=== PATIENT | male | born 1965 | race Caucasian/White ===

== ENCOUNTER 2016-12-16 14:26 | Emergency (ER) | payer MEDICARE, OTHER ==
--- NOTE | 2016-12-16 16:54 | ED ---
Wound/Laceration HPI - General Chief Complaint: Wound/Laceration Stated Complaint: thumb lac Time Seen by Provider: 12/16/16 16:06 Source: patient Mode of arrival: ambulatory Limitations: no limitations - History of Present Illness Initial Comments: Patient is a 51-year-old right-handed white male presenting to the emergency department with complaints of laceration to left thumb. Onset of injury approximately one hour prior to arrival. Patient states he cut himself on the lid of a metal can. Patient states his tetanus shot less than 5 years ago. Onset/Timin -: hour(s) Extremity Location: Left: Hand (Distal thumb) Place: home Patient Tetanus UTD: Yes Context: accidental Treatments Prior to Arrival: bandage - Related Data Home Medications Medication Instructions Recorded Confirmed Mometasone/Formoterol [Dulera 100 2 puff INHALATION RT-BID 10/31/15 01/20/16 Mcg/5 Mcg Inhaler] Albuterol Sulfate [Proair Hfa] 2 puff INHALATION RT-Q6H PRN 01/20/16 01/20/16 Previous Rx's Medication Instructions Recorded Clindamycin [Cleocin] 450 mg PO Q8HR #90 capsule 01/20/16 Ibuprofen [Motrin] 600 mg PO Q6HR PRN #20 tab 01/20/16 Cephalexin [Keflex] 500 mg PO Q6HR #28 cap 12/16/16 Allergies Allergy/AdvReac Type Severity Reaction Status Date / Time No Known Allergies Allergy Verified 12/16/16 14:46 Review of Systems ROS Statement: Those systems with pertinent positive or pertinent negative responses have been documented in the HPI. ROS Other: All systems not noted in ROS Statement are negative. Past Medical History Past Medical History: Asthma History of Any Multi-Drug Resistant Organisms: None Reported Past Surgical History: Orthopedic Surgery Additional Past Surgical History / Comment(s): left knee sx Past Psychological History: No Psychological Hx Reported Smoking Status: Never smoker Past Alcohol Use History: Rare Past Drug Use History: None Reported General Exam Limitations: no limitations General appearance: alert, in no apparent distress Head exam: Present: atraumatic, normocephalic, normal inspection Eye exam: Present: normal appearance ENT exam: Present: normal exam, mucous membranes moist Neck exam: Present: normal inspection Respiratory exam: Present: normal lung sounds bilaterally. Absent: respiratory distress, wheezes, rales, rhonchi, stridor Cardiovascular Exam: Present: regular rate, normal rhythm, normal heart sounds. Absent: systolic murmur, diastolic murmur, rubs, gallop, clicks GI/Abdominal exam: Present: soft, normal bowel sounds Left Hand Wrist exam: Present: normal inspection, full ROM, laceration (2 cm irregular laceration to distal left thumb). Absent: tenderness, swelling Neuro motor exam: Present: wrist extension intact, thumb opposition intact, thumb IP flexion intact, thumb adduction intact, fingers 2-5 abduction intact Neurosensory exam: Present: 2-point discrimination, radial nerve intact, ulnar nerve intact, median nerve intact Vascular: Present: normal capillary refill, radial pulse, brachial pulse, ulnar pulse. Absent: vascular compromise Neurological exam: Present: alert, oriented X3, other (No focal deficits noted) . Absent: motor sensory deficit Psychiatric exam: Present: normal affect, normal mood Skin exam: Present: warm, dry, normal color Course Vital Signs 12/16/16 14:44 Temperature 97.5 F L Pulse Rate 57 L Respiratory 18 Rate Blood Pressure 110/70 O2 Sat by Pulse 99 Oximetry Procedures - Laceration Laceration #1 Consent Obtained: verbal consent Indication: laceration Site: hand (Left distal thumb radial aspect) Size (cm): 2 Description: irregular, clean Depth: simple, single layer Anesthetic Used: lidocaine 1% Anesthesia Technique: local infiltration Amount (mls): 1 Pre-repair: wound explored, irrigated extensively, deep structures intact Type of Sutures: nylon Size of Sutures: 5-0 Number of Sutures: 4 Technique: simple, interrupted Patient Tolerated Procedure: well, no complications Medical Decision Making - Medical Decision Making Left thumb laceration. Patient tolerated laceration repair well. Wound care instructions and return parameters reviewed. Patient agreed to plan of care. Disposition Clinical Impression: Laceration of left thumb Disposition: HOME SELF-CARE Condition: Good Instructions: Care For Your Stitches (ED), Finger Laceration (ED) Additional Instructions: Postop wound care: Keep wound dry and clean for 24 hours; if dressing accidentally becomes wet, change dressing immediately. Gently clean the edges of the wound daily with a cotton swab saturated with peroxide to remove crust. Return immediately if signs of infection occur such as redness or red streaks progressing up and extremity, increasing pain, swelling, or fevers. Finish oral antibiotics as prescribed. Please return for suture removal in 7 days or sooner if complications. Please return to the emergency department if symptoms do not improve or get worse. Prescriptions: Cephalexin [Keflex] 500 mg PO Q6HR #28 cap Referrals: Jovani Foster MD [Primary Care Provider] - 1-2 days Time of Disposition: 16:54
[2016-12-16 17:15] VITALS: BP 120/68; PULSE 78; RESP 16; TEMP 98
== END 2016-12-16 17:00 | disposition home or self-care (01) ==
LOC: EC 14:26
DX: S61.012A Laceration without foreign body of left thumb without damage to nail, initial encounter (principal); J45.909 Unspecified asthma, uncomplicated; Z79.51 Long term (current) use of inhaled steroids; W26.8XXA Contact with other sharp object(s), not elsewhere classified, initial encounter
CPT/HCPCS: 12001; 99282

== ENCOUNTER 2017-12-31 12:10 | Emergency (ER) | payer MEDICARE, OTHER ==
[2017-12-31 12:22] VITALS: BP 129/77; PULSE 85; RESP 18; TEMP 98.6
--- NOTE | 2017-12-31 12:38 | ED ---
Upper Extremity HPI - General Chief Complaint: Extremity Injury, Upper Stated Complaint: lt arm injury Time Seen by Provider: 12/31/17 12:24 Source: patient, RN notes reviewed Mode of arrival: ambulatory Limitations: no limitations - History of Present Illness Initial Comments: 52-year-old male presents emergency Department with chief complaint of left elbow injury. Patient states that he tripped at work and fell into his work line at work. Patient states that it is all night AND STATES THAT HER BODY FELL DIRECTLY INTO IT WITH HIS ELBOW AND ARM TUCKED INTO THE BODY. Patient states his arms outstretched. Patient denies any head injury no loss conscious. Patient states that he went to [facility] and sent here for further workup. Patient has had no x-rays. - Related Data Home Medications Medication Instructions Recorded Confirmed Albuterol Sulfate [Proair Hfa] 2 puff INHALATION RT-Q6H PRN 01/20/16 12/31/17 Previous Rx's Medication Instructions Recorded Ibuprofen [Motrin] 600 mg PO Q8HR PRN #30 tab 12/31/17 Allergies Allergy/AdvReac Type Severity Reaction Status Date / Time No Known Allergies Allergy Verified 12/31/17 13:18 Review of Systems ROS Statement: Those systems with pertinent positive or pertinent negative responses have been documented in the HPI. ROS Other: All systems not noted in ROS Statement are negative. Past Medical History Past Medical History: Asthma History of Any Multi-Drug Resistant Organisms: None Reported Past Surgical History: Orthopedic Surgery Additional Past Surgical History / Comment(s): left knee sx Past Psychological History: No Psychological Hx Reported Smoking Status: Never smoker Past Alcohol Use History: Rare Past Drug Use History: None Reported General Exam Limitations: no limitations General appearance: alert, in no apparent distress Head exam: Present: atraumatic, normocephalic, normal inspection Neck exam: Present: normal inspection. Absent: tenderness, meningismus, lymphadenopathy Respiratory exam: Present: normal lung sounds bilaterally. Absent: respiratory distress, wheezes, rales, rhonchi, stridor Cardiovascular Exam: Present: regular rate, normal rhythm, normal heart sounds. Absent: systolic murmur, diastolic murmur, rubs, gallop, clicks GI/Abdominal exam: Present: soft, normal bowel sounds. Absent: distended, tenderness, guarding, rebound, rigid Extremities exam: Present: other (Left elbow there is moderate times with palpation, moderate swelling small abrasion. Patient has limited range of motion secondary pain pain with full extension, pronation supination are is neurovascularly intact there is no tenderness of the proximal humeral region and there is no distal forearm tenderness) Skin exam: Present: warm, dry, intact, normal color. Absent: rash Course Vital Signs 12/31/17 12:20 Temperature 98.6 F Pulse Rate 85 Respiratory 18 Rate Blood Pressure 129/77 O2 Sat by Pulse 96 Oximetry Disposition Clinical Impression: Contusion of left elbow Disposition: HOME SELF-CARE Condition: Stable Instructions: Contusion in Adults (ED) Additional Instructions: Follow-up with orthopedics as directed.Please return to the Emergency Department if symptoms worsen or any other concerns. Prescriptions: Ibuprofen [Motrin] 600 mg PO Q8HR PRN #30 tab PRN Reason: Pain Is patient prescribed a controlled substance at d/c from ED?: No Referrals: Neto Foster MD [Primary Care Provider] - 1-2 days Aris Lacey MD [STAFF PHYSICIAN] - 1-2 days Time of Disposition: 13:28
--- NOTE | 2017-12-31 12:55 | XR ---
EXAMINATION TYPE: XR elbow complete LT DATE OF EXAM: 12/31/2017 CLINICAL HISTORY: Fall injury with pain. TECHNIQUE: Frontal, lateral and oblique images of the left elbow are obtained. COMPARISON: None FINDINGS: There is no acute fracture/dislocation evident in the left elbow. No abnormal fat pad sig ns are seen. Some spurring and ossifications medial epicondyle extending distally is present. Additio nal well-corticated ossific fragments over lateral epicondyles also are noted. Findings could be prod uct of old trauma and/or degenerative change. The overlying soft tissue shows mild subcutaneous edema along radial aspect of distal humerus. IMPRESSION: There is no acute fracture or dislocation in the left elbow.
== END 2017-12-31 13:43 | disposition home or self-care (01) ==
LOC: EC 12:10
DX: S50.02XA Contusion of left elbow, initial encounter (principal); Z98.890 Other specified postprocedural states; W01.0XXA Fall on same level from slipping, tripping and stumbling without subsequent striking against object, initial encounter; Y99.0 Civilian activity done for income or pay
CPT/HCPCS: 99283

== ENCOUNTER → 2018-04-30 | Outpatient (CLI) | payer MEDICARE ==
--- NOTE | 2018-04-30 14:31 | US ---
EXAMINATION TYPE: US abdomen complete DATE OF EXAM: 04/30/2018 COMPARISON: CT 05/14/2015 CLINICAL HISTORY: R74.8 ABN LEVELS OF OTHER SERUM ENZYMES. EXAM MEASUREMENTS: Liver Length: 14.6 cm Gallbladder Wall: 0.1 cm CBD: 0.4 cm Spleen: 12.9 cm Right Kidney: 11.2 x 4.0 x 4.9 cm Left Kidney: 11.8 x 4.9 x 4.3 cm Pancreas: Obscured by bowel gas Liver: wnl Gallbladder: wnl Evidence for sonographic Lacey's sign: No CBD: wnl as visualized, distal portion obscured by bowel gas Spleen: wnl Right Kidney: No hydronephrosis or masses seen Left Kidney: No hydronephrosis or masses seen Upper IVC: wnl Abd Aorta: wnl IMPRESSION: 1. Normal abdomen ultrasound
== END | disposition home or self-care (01) ==
LOC: RADUSWWP 08:18
PROVIDERS: ATTEND Family Medicine
DX: R74.8 Abnormal levels of other serum enzymes (principal)
CPT/HCPCS: 76700

== ENCOUNTER 2018-09-24 08:46 | Emergency (ER) | payer MEDICARE, OTHER ==
[2018-09-24 08:56] VITALS: BP 124/83; PULSE 65; RESP 18; TEMP 97.9
--- NOTE | 2018-09-24 09:28 | ED ---
URI HPI - General Chief Complaint: Upper Respiratory Infection Stated Complaint: SORE THROAT Time Seen by Provider: 09/24/18 09:13 Source: patient, RN notes reviewed Mode of arrival: ambulatory Limitations: no limitations - History of Present Illness Initial Comments: This is a 52-year-old male who states she's had a sore throat with a green nasal discharge and a productive cough with some green phlegm for the pelvic the past week he denies any ear pain denies any overt fevers chills or sweats does have sinus drainage as stated. No chest pain. No other symptoms reported - Related Data Home Medications Medication Instructions Recorded Confirmed Albuterol Sulfate [Proair Hfa] 2 puff INHALATION RT-Q6H PRN 01/20/16 12/31/17 Previous Rx's Medication Instructions Recorded Ibuprofen [Motrin] 600 mg PO Q8HR PRN #30 tab 12/31/17 Amoxicillin/Potassium Clav 1 tab PO Q12HR #20 tab 09/24/18 [Augmentin 875-125 Tablet] guaiFENesin [Mucinex] 600 mg PO Q12HR #20 tablet.er 09/24/18 Allergies Allergy/AdvReac Type Severity Reaction Status Date / Time No Known Allergies Allergy Verified 09/24/18 08:55 Review of Systems ROS Statement: Those systems with pertinent positive or pertinent negative responses have been documented in the HPI. ROS Other: All systems not noted in ROS Statement are negative. Past Medical History Past Medical History: Asthma History of Any Multi-Drug Resistant Organisms: None Reported Past Surgical History: Orthopedic Surgery Additional Past Surgical History / Comment(s): left knee sx Past Psychological History: No Psychological Hx Reported Smoking Status: Never smoker Past Alcohol Use History: Occasional Past Drug Use History: None Reported General Exam - General Exam Comments Initial Comments: This is a well-developed well-nourished awake alert oriented 3 male Limitations: no limitations General appearance: alert, in no apparent distress Head exam: Present: atraumatic, normocephalic, normal inspection Eye exam: Present: normal appearance, PERRL, EOMI. Absent: scleral icterus, conjunctival injection, periorbital swelling ENT exam: Present: other (He does demonstrate posterior pharyngeal hyperemia no definite exudates. TMs are dull. There is boggy nasal mucosa with some greenish drainage noted.) Neck exam: Present: normal inspection, tenderness (Tender anterior cervical lymphadenopathy), full ROM, lymphadenopathy, other (No stridor JVD or bruits). Absent: meningismus Respiratory exam: Present: normal lung sounds bilaterally. Absent: respiratory distress, wheezes, rales, rhonchi, stridor Cardiovascular Exam: Present: regular rate, normal rhythm, normal heart sounds. Absent: systolic murmur, diastolic murmur, rubs, gallop, clicks GI/Abdominal exam: Present: soft, normal bowel sounds. Absent: distended, tenderness, guarding, rebound, rigid Extremities exam: Present: normal inspection, full ROM, normal capillary refill. Absent: tenderness, pedal edema, joint swelling, calf tenderness Back exam: Present: normal inspection Neurological exam: Present: alert, oriented X3, CN II-XII intact Psychiatric exam: Present: normal affect, normal mood Skin exam: Present: warm, dry, intact, normal color. Absent: rash Course Vital Signs 09/24/18 08:54 Temperature 97.9 F Pulse Rate 65 Respiratory 18 Rate Blood Pressure 124/83 O2 Sat by Pulse 98 Oximetry Medical Decision Making - Medical Decision Making The presentation is consistent with nasal pharyngitis patient be discharged on appropriate medication Disposition Clinical Impression: Nasopharyngitis acute Disposition: HOME SELF-CARE Condition: Good Instructions (If sedation given, give patient instructions): Pharyngitis (ED) Prescriptions: Amoxicillin/Potassium Clav [Augmentin 875-125 Tablet] 1 tab PO Q12HR #20 tab guaiFENesin [Mucinex] 600 mg PO Q12HR #20 tablet.er Is patient prescribed a controlled substance at d/c from ED?: No Referrals: Neto Foster MD [Primary Care Provider] - 1-2 days
== END 2018-09-24 09:42 | disposition home or self-care (01) ==
LOC: EC 08:46
DX: J00 Acute nasopharyngitis [common cold] (principal); J45.909 Unspecified asthma, uncomplicated
CPT/HCPCS: 99283

== ENCOUNTER 2019-07-09 09:39 | Emergency (ER) | payer MEDICARE, OTHER ==
[2019-07-09 09:43] VITALS: RESP 16; TEMP 98.2
[2019-07-09] MEDS ORDERED: ACET/COD 300 MG/30 MG STARTER PACK 6 TAB BTL PO STA (10:50)
[2019-07-09] MEDS ORDERED: AMOXIC-POT CLAV 875MG STARTER 2 EACH TABLET PO STA (10:50)
--- NOTE | 2019-07-09 10:58 | ED ---
ENT HPI - General Stated complaint: DENTAL ABSCESS, FACIAL SWELLING Time Seen by Provider: 07/09/19 10:26 Source: patient, RN notes reviewed, old records reviewed Mode of arrival: ambulatory Limitations: no limitations - History of Present Illness Initial comments: Patient is a 53 year old male presents today for evalutaiotn for facial sweling boer the right upper cheek, up towards the eye. Patient reports that he has infected right eye tooth. He plans to follow up with dentist. Patient denies fevers, chills. Patient complains of pain in the right upper eye tooth, and sensitive to cold and heat. Patient denies any other symptoms. - Related Data Previous Rx's Medication Instructions Recorded Amoxic-Pot Clav 875-125Mg 1 tab PO BID #20 tab 07/09/19 [Augmentin 875-125] Ibuprofen [Motrin] 600 mg PO Q8HR PRN #30 tab 07/09/19 Allergies Allergy/AdvReac Type Severity Reaction Status Date / Time No Known Allergies Allergy Verified 07/09/19 11:12 Review of Systems ROS Statement: Those systems with pertinent positive or pertinent negative responses have been documented in the HPI. ROS Other: All systems not noted in ROS Statement are negative. Past Medical History Past Medical History: Asthma History of Any Multi-Drug Resistant Organisms: None Reported Past Surgical History: Orthopedic Surgery Additional Past Surgical History / Comment(s): left knee sx Past Psychological History: No Psychological Hx Reported Smoking Status: Never smoker Past Alcohol Use History: Occasional Past Drug Use History: None Reported General Exam - General Exam Comments Initial Comments: 53 year old male, no distress. Limitations: no limitations General appearance: alert, in no apparent distress Head exam: Present: atraumatic, normocephalic, normal inspection Eye exam: Present: normal appearance, PERRL, EOMI. Absent: scleral icterus, conjunctival injection, periorbital swelling ENT exam: Present: normal exam, mucous membranes moist, other (Patient has swelling over right upper lip into maxilla, concern for infection and abscess releated to right upper eye tooth. ) Neck exam: Present: normal inspection. Absent: tenderness, meningismus, lymphadenopathy Respiratory exam: Present: normal lung sounds bilaterally. Absent: respiratory distress, wheezes, rales, rhonchi, stridor Cardiovascular Exam: Present: regular rate, normal rhythm, normal heart sounds. Absent: systolic murmur, diastolic murmur, rubs, gallop, clicks GI/Abdominal exam: Present: soft, normal bowel sounds. Absent: distended, tenderness, guarding, rebound, rigid Neurological exam: Present: alert, oriented X3, CN II-XII intact Psychiatric exam: Present: normal affect, normal mood Skin exam: Present: warm, dry, intact, normal color. Absent: rash Course Vital Signs 07/09/19 07/09/19 09:40 11:16 Temperature 98.2 F Pulse Rate 75 76 Respiratory 16 16 Rate Blood Pressure 89/54 141/72 O2 Sat by Pulse 98 99 Oximetry Medical Decision Making - Medical Decision Making 53 year old male with facial swelling and dental infection. Discussed placing patient on augmentin and advised that patient follow up with dentist. Discussed return parameters if symptoms don't diminish in 2 days of antibiotics. Patient is agreeable to treatment plan. Disposition Clinical Impression: Dental abscess Disposition: HOME SELF-CARE Instructions (If sedation given, give patient instructions): Dental Abscess (ED) Additional Instructions: Please use medication as discussed. Please follow up with family doctor if symptoms have not improved over the next two days. Please return to the emergency room if your symptoms increase or worsen or for any other concerns. [facility] [place] [id number] [employer] [place] [id number] [phone] (existing clients only) For new clients: [phone] 1st consult: $50 (includes Xrays) Usually 30% less then private dentist for visits after. [employer] Have to pay $50 for Xrays anmd rest is covered. [phone] Prescriptions: Amoxic-Pot Clav 875-125Mg [Augmentin 875-125] 1 tab PO BID #20 tab Ibuprofen [Motrin] 600 mg PO Q8HR PRN #30 tab PRN Reason: Pain Is patient prescribed a controlled substance at d/c from ED?: No Referrals: Jovani Foster MD [STAFF PHYSICIAN] - 1-2 days Time of Disposition: 10:57
[2019-07-09 11:18] VITALS: BP 141/72; PULSE 76
== END 2019-07-09 11:16 | disposition home or self-care (01) ==
LOC: EC 09:39
DX: K04.7 Periapical abscess without sinus (principal)
CPT/HCPCS: 99283

== ENCOUNTER → 2020-04-01 | Outpatient (CLI) | payer OTHER ==
--- NOTE | 2020-04-01 09:07 | US ---
EXAMINATION TYPE: US abdomen complete DATE OF EXAM: 04/01/2020 COMPARISON: CT May 12, 2015 CLINICAL HISTORY: R74.8 Elevated liver enzymes. elevated liver enzymes EXAM MEASUREMENTS: Liver Length: 14.3 cm Gallbladder Wall: 0.2 cm CBD: 0.4 cm Spleen: 13.2 cm Right Kidney: 10.3 x 5.6 x 5.1 cm Left Kidney: 12.1 x 5.1 x 5.1 cm Pancreas: Tail obscured by overlying bowel gas Liver: appears wnl Gallbladder: no evidence of stones Evidence for sonographic Lacey's sign: no CBD: appears wnl Spleen: wnl Right Kidney: no evidence of hydronephrosis or mass Left Kidney: no evidence of hydronephrosis or mass Upper IVC: wnl Abd Aorta: wnl The visualized liver is slightly heterogeneous. The intrahepatic portion of the IVC and visualized a bdominal aorta are within normal limits. There is no evidence of cholelithiasis. Common bile duct i s unremarkable. The visualized portions of the pancreas are homogenous. The spleen is unremarkable. Kidneys are symmetric and free of hydronephrosis. No renal lesions are seen on images saved. IMPRESSION: No new suspicious intrahepatic mass or intrahepatic ductal dilatation identified. Perhaps mild underlying diffuse fatty infiltration.
== END | disposition home or self-care (01) ==
LOC: RADUSWWP 08:27
PROVIDERS: ATTEND Family Medicine
DX: R74.8 Abnormal levels of other serum enzymes (principal)
CPT/HCPCS: 76700

== ENCOUNTER → 2020-04-06 | Day surgery (SDC) | payer OTHER ==
[2020-04-05 10:23] VITALS: BMI 25.0
[~2020-04-06] MED LIST: LIDOCAINE 1% (10MG/ML) FOR IV START INTRADERMA PRN; PROPOFOL 10 MG/ML 20 ML VIAL IV ONE
[2020-04-06 09:10] VITALS: TEMP 98.4
[2020-04-06] MEDS: LACTATED RINGERS 1,000 ML IV SCH ×2 (09:19→09:20)
--- NOTE | 2020-04-06 09:55 | P.PCN ---
Date of Procedure: 04/06/20 Description of Procedure: BRIEF HISTORY: Patient is a 54-year-old male presenting for outpatient evaluation with colonoscopy for screening for malignant neoplasm of the colon. No prior history of colonoscopy. No change in bowel habits, blood per rectum or family history of colon cancer. PROCEDURE PERFORMED: Colonoscopy. PREOPERATIVE DIAGNOSIS: Screening for malignant neoplasm of the colon, no prior colonoscopy. ESTIMATED BLOOD LOSS: Minimal. IV sedation per Anesthesia. PROCEDURE: After informed consent was obtained, the patient, was brought into the endoscopy unit. IV sedation was administered by Anesthesia under continuous monitoring. Digital rectal examination was normal. Initially the Olympus CF-190 flexible video colonoscope was then inserted in the rectum, gradually advanced into the cecum without any difficulty. Careful examination was performed as the scope was gradually being withdrawn. Ileocecal valve and the appendiceal orifice were visualized and appeared normal. Prep was excellent. Mucosa of the cecum, ascending colon, transverse colon, descending colon, sigmoid colon, and rectum appeared normal, except for some small diverticula noted throughout the sigmoid colon. Retroflexion was performed in the rectum and no lesions were seen, low- grade internal hemorrhoids seen. The patient tolerated the procedure well. IMPRESSION: Normal-appearing colon from rectum to cecum. Mild sigmoid diverticulosis. RECOMMENDATIONS: Findings of this examination were discussed with the patient and his family. Okay to resume diet. Okay to resume medications. Would recommend repeat colonoscopy in 10 years for screening for malignant neoplasm of the colon, or so ewa if any signs or symptoms which warrant further evaluation developed.
[2020-04-06 09:58] VITALS: RESP 17
[2020-04-06 10:20] VITALS: BP 101/62; PULSE 66
== END ==
LOC: ORWHC2ENDO 08:05
PROVIDERS: ATTEND Internal Medicine
DX: Z12.11 Encounter for screening for malignant neoplasm of colon (principal); K57.30 Diverticulosis of large intestine without perforation or abscess without bleeding; K64.8 Other hemorrhoids; J45.909 Unspecified asthma, uncomplicated; Z79.899 Other long term (current) drug therapy; Z98.890 Other specified postprocedural states
CPT/HCPCS: J2704; G0121

== ENCOUNTER 2021-01-21 17:12 | Emergency (ER) | payer OTHER ==
[2021-01-21 17:19] VITALS: BP 135/83; PULSE 73; RESP 18; TEMP 97.9
--- NOTE | 2021-01-21 18:15 | XR ---
EXAMINATION TYPE: XR hand complete RT DATE OF EXAM: 01/21/2021 COMPARISON: NONE HISTORY: Swelling TECHNIQUE: 3 views FINDINGS: The metacarpals are intact. There is minor spurring at the third MP joint. Carpal bones are intact. I see no fracture nor dislocation. There is some spurring at the DIP joint of the middle fin rafal. IMPRESSION: There are some arthritic changes in the middle finger. No fracture.
--- NOTE | 2021-01-21 18:21 | ED ---
Upper Extremity HPI - General Chief Complaint: Extremity Injury, Upper Stated Complaint: Hit hand on railing, swelling Time Seen by Provider: 01/21/21 17:46 Source: patient Mode of arrival: ambulatory Limitations: no limitations - History of Present Illness Initial Comments: 55-year-old male presents to the emergency department with a chief complaint of right hand pain. Reports this occurred about 3 days ago after he accidentally slammed his arm on a railing as he was throwing an object. Patient reports there was more swelling in the hand which has since slight resolved. He reports good range of motion in his hand especially with grasping objects due to pain. Denies any erythema or paresthesias. Denies taking medication to alleviate the symptoms. - Related Data Home Medications Medication Instructions Recorded Confirmed Albuterol Inhaler [Ventolin Hfa 2 puff INHALATION RT-Q6H PRN 01/21/21 01/21/21 Inhaler] Ibuprofen [Motrin Ib] 60 mg PO Q8H PRN 01/21/21 01/21/21 Pantoprazole Sodium [Protonix] 40 mg PO DAILY 01/21/21 01/21/21 amLODIPine [Norvasc] 2.5 mg PO DAILY 01/21/21 01/21/21 Allergies Allergy/AdvReac Type Severity Reaction Status Date / Time No Known Allergies Allergy Verified 01/21/21 18:11 Review of Systems ROS Statement: Those systems with pertinent positive or pertinent negative responses have been documented in the HPI. ROS Other: All systems not noted in ROS Statement are negative. Past Medical History Past Medical History: Asthma History of Any Multi-Drug Resistant Organisms: None Reported Past Surgical History: Orthopedic Surgery Additional Past Surgical History / Comment(s): left knee sx Past Psychological History: No Psychological Hx Reported Smoking Status: Never smoker Past Alcohol Use History: Occasional Past Drug Use History: None Reported General Exam Limitations: no limitations General appearance: alert, in no apparent distress Head exam: Present: atraumatic, normocephalic, normal inspection Eye exam: Present: normal appearance, PERRL, EOMI Pupils: Present: normal accommodation ENT exam: Present: normal exam, normal oropharynx, mucous membranes moist Neck exam: Present: normal inspection, full ROM. Absent: tenderness, lymphadenopathy Respiratory exam: Present: normal lung sounds bilaterally. Absent: respiratory distress, wheezes, rales Cardiovascular Exam: Present: regular rate, normal rhythm, normal heart sounds. Absent: systolic murmur Extremities exam: Present: normal inspection (Mild swelling noted on the right hand), full ROM, tenderness (Tenderness in the middle of the hand), normal capillary refill, other (Palpable ulnar and radial pulses bilaterally). Absent: pedal edema, joint swelling, calf tenderness Back exam: Present: normal inspection, full ROM. Absent: tenderness, CVA tenderness (R), CVA tenderness (L) Neurological exam: Present: alert, oriented X3, normal gait Psychiatric exam: Present: normal affect, normal mood Skin exam: Present: warm, dry, intact, normal color Course Vital Signs 01/21/21 17:17 Temperature 97.9 F Pulse Rate 73 Respiratory 18 Rate Blood Pressure 135/83 O2 Sat by Pulse 96 Oximetry Medical Decision Making - Medical Decision Making 55-year-old male presents to the emergency department with a chief complaint of right hand injury. On physical examination, patient is neurovascularly intact. X-ray shows no acute findings. I did offer him analgesia, he declined. Advised him to rest, ice, compress and elevate. Advised him to follow with system support specialist the symptoms not improved. Return parameters were discussed patient was understanding and agreeable. Case discussed with Disposition Clinical Impression: Injury of right hand Disposition: ADMITTED IP TO THIS [facility] Condition: Stable Instructions (If sedation given, give patient instructions): Wrist Injury (ED) Additional Instructions: Please return to the Emergency Department if symptoms worsen or any other concerns. Is patient prescribed a controlled substance at d/c from ED?: No Referrals: Neto Foster MD [Primary Care Provider] - 1-2 days Time of Disposition: 18:22
== END 2021-01-21 18:31 | disposition other institution (70) ==
LOC: EC 17:12
DX: S69.91XA Unspecified injury of right wrist, hand and finger(s), initial encounter (principal); J45.909 Unspecified asthma, uncomplicated; W23.1XXA Caught, crushed, jammed, or pinched between stationary objects, initial encounter
CPT/HCPCS: 99283

== ENCOUNTER 2021-05-16 09:06 | Emergency (ER) | payer OTHER ==
[2021-05-16 09:28] VITALS: BP 131/84; PULSE 76; RESP 18; TEMP 98.3
[2021-05-16] MEDS ORDERED: ACET/COD 300 MG/30 MG STARTER PACK 6 TAB BTL PO STA (10:00)
--- NOTE | 2021-05-16 10:00 | ED ---
Back Pain HPI - General Chief Complaint: Back Pain/Injury Stated Complaint: [facility]-Back Injury Time Seen by Provider: 05/16/21 09:20 Source: patient, RN notes reviewed Limitations: no limitations - History of Present Illness Initial Comments: 55-year-old male presents emergency Department chief complaint of upper back pain. Patient states he was at work today when he is lifting 2 gallon buckets of pickles twisting to his right when he felt a pull on his left side of his back. She states movement better rest of chest pain or shortness of breath denies any low back pain denies any bowel, bladder incontinence or retentionanesthesias. - Related Data Home Medications Medication Instructions Recorded Confirmed Albuterol Inhaler [Ventolin Hfa 2 puff INHALATION RT-Q6H PRN 01/21/21 01/21/21 Inhaler] Ibuprofen [Motrin Ib] 60 mg PO Q8H PRN 01/21/21 01/21/21 Pantoprazole Sodium [Protonix] 40 mg PO DAILY 01/21/21 01/21/21 amLODIPine [Norvasc] 2.5 mg PO DAILY 01/21/21 01/21/21 Previous Rx's Medication Instructions Recorded Cyclobenzaprine [Flexeril] 10 mg PO TID PRN #15 tab 05/16/21 Ibuprofen [Motrin] 600 mg PO Q8HR PRN #20 tab 05/16/21 Allergies Allergy/AdvReac Type Severity Reaction Status Date / Time No Known Allergies Allergy Verified 05/16/21 09:28 Review of Systems ROS Statement: Those systems with pertinent positive or pertinent negative responses have been documented in the HPI. ROS Other: All systems not noted in ROS Statement are negative. Past Medical History Past Medical History: Asthma History of Any Multi-Drug Resistant Organisms: None Reported Past Surgical History: Orthopedic Surgery Additional Past Surgical History / Comment(s): left knee sx Past Psychological History: No Psychological Hx Reported Smoking Status: Never smoker Past Alcohol Use History: Occasional Past Drug Use History: None Reported General Exam Limitations: no limitations General appearance: alert, in no apparent distress Head exam: Present: atraumatic, normocephalic, normal inspection Neck exam: Present: normal inspection, full ROM. Absent: tenderness, m eningismus, lymphadenopathy Respiratory exam: Present: normal lung sounds bilaterally. Absent: respiratory distress, wheezes, rales, rhonchi, stridor, chest wall tenderness Cardiovascular Exam: Present: regular rate, normal rhythm, normal heart sounds. Absent: systolic murmur, diastolic murmur, rubs, gallop, clicks GI/Abdominal exam: Present: soft, normal bowel sounds. Absent: distended, tenderness, guarding, rebound, rigid Back exam: Present: normal inspection, full ROM, tenderness (Tenderness thoracic paraspinal), muscle spasm, paraspinal tenderness, vertebral tenderness Neurological exam: Present: reflexes normal. Absent: motor sensory deficit Course Vital Signs 05/16/21 09:24 Temperature 98.3 F Pulse Rate 76 Respiratory 18 Rate Blood Pressure 131/84 O2 Sat by Pulse 96 Oximetry Medical Decision Making - Medical Decision Making Patient has a thoracic strain. Patient has no red flag symptoms be discharged stable condition. Disposition Clinical Impression: Strain of thoracic back region Disposition: HOME SELF-CARE Condition: Stable Instructions (If sedation given, give patient instructions): Thoracic Back Strain (ED) Additional Instructions: Please return to the Emergency Department if symptoms worsen or any other concerns. Prescriptions: Cyclobenzaprine [Flexeril] 10 mg PO TID PRN #15 tab PRN Reason: Muscle Spasm Ibuprofen [Motrin] 600 mg PO Q8HR PRN #20 tab PRN Reason: Pain Is patient prescribed a controlled substance at d/c from ED?: No Referrals: Neto Foster MD [Primary Care Provider] - 1-2 days Time of Disposition: 10:00
== END 2021-05-16 10:31 | disposition home or self-care (01) ==
LOC: EC 09:06
DX: S29.012A Strain of muscle and tendon of back wall of thorax, initial encounter (principal); J45.909 Unspecified asthma, uncomplicated; X50.0XXA Overexertion from strenuous movement or load, initial encounter
CPT/HCPCS: 99283

== ENCOUNTER → 2021-05-24 | Outpatient (CLI) | payer OTHER ==
--- NOTE | 2021-05-24 11:19 | XR ---
EXAMINATION TYPE: XR lumbar spine 2 or 3V DATE OF EXAM: 05/24/2021 CLINICAL HISTORY: pain TECHNIQUE: Three views of the lumbar spine are submitted. COMPARISON: None. FINDINGS: There are 5 lumbar type vertebral bodies identified. The lumbar spine shows satisfactory alignment w ithout evidence of acute fracture or dislocation. Vertebral body heights are within normal limits. Severe degenerative narrowing L5-S1. Mild ventral and dorsal spondylosis. The overlying soft tissue appears unremarkable. IMPRESSION: No acute fracture or dislocation is seen in the lumbar spine. ICD 10 NO FRACTURE, INITIAL EVALUATION
== END | disposition home or self-care (01) ==
LOC: RADXRMAIN 10:48
PROVIDERS: ATTEND Emergency Medicine
DX: M47.817 Spondylosis without myelopathy or radiculopathy, lumbosacral region (principal)
CPT/HCPCS: 72100

== ENCOUNTER → 2022-02-23 | Outpatient (CLI) | payer BC ==
--- NOTE | 2022-02-24 21:28 | CT ---
EXAMINATION TYPE: CT abdomen pelvis wo con DATE OF EXAM: 02/23/2022 COMPARISON: CT dated 05/12/2015 HISTORY: abdominal pain x1 month CT DLP: 958 mGycm Automated exposure control for dose reduction was used. TECHNIQUE: Helical acquisition of images was performed from the lung bases through the pelvis. FINDINGS: LUNG BASES: No significant abnormality is appreciated. LIVER/GB: Subtle 15 mm hypodensity seen in the posterior aspect of the left hepatic lobe (image #26, series 3), not well appreciated previously. This could be artifactual however true lesion at that loc ation cannot be excluded. Further CT scan or MRI of the liver can be considered. No other definite he patic focal lesion by this nonenhanced CT scan. Unremarkable gallbladder. PANCREAS: No significant abnormality is seen. SPLEEN: No significant abnormality is seen. ADRENALS: No significant abnormality is seen. KIDNEYS: 9 mm cyst is seen at the lower pole of right kidney, stable since 2015 CT scan. Unremarkable kidneys otherwise. FREE AIR: No free air is visualized RETROPERITONEAL ADENOPATHY: None visualized REPRODUCTIVE ORGANS: No significant abnormality is seen URINARY BLADDER: No significant abnormality is seen. PELVIC ADENOPATHY: None visualized. OSSEOUS STRUCTURES: Degenerative changes at L5-S1 level. Mild retrolisthesis of L5 over S1. BOWEL: Colonic diverticulosis without evidence of acute diverticulitis. No gross colonic mass howeve r a small lesion cannot be excluded. Normal appendix. No bowel obstruction. OTHER: No free abdominal or pelvic fluid. IMPRESSION: No definite acute abnormality seen in the abdomen or the pelvis. Subtle left hepatic lobe hypodensity as described above, nonspecific and could be artifactual however a true hepatic lesion cannot be excluded. Further enhanced CT scan or MRI of the liver can be consid ered. Other findings as described above.
== END | disposition home or self-care (01) ==
LOC: RADCTMAIN 14:48
PROVIDERS: ATTEND Family Medicine
DX: R10.9 Unspecified abdominal pain (principal)
CPT/HCPCS: 74176

== ENCOUNTER → 2022-03-29 | Outpatient (CLI) | payer BC ==
--- NOTE | 2022-03-30 04:58 | MR ---
EXAMINATION TYPE: MR abdomen wo/w con DATE OF EXAM: 03/29/2022 COMPARISON: None HISTORY: Abdominal pain, abnormal CT. CONTRAST: Standard multiplanar, multisequence MRI departmental protocol images were obtained without contrast a nd with 9 mL intravenous Gadavist gadolinium contrast. Liver has normal size and contour. Bilaterally are not dilated. Spleen appears normal. Stomach appear s normal. There is no evidence of pancreatic mass. The gallbladder appears normal. There is no evidence of pleural effusion. There is no pericardial effusion. Kidneys have normal size and contour. No hydronephrosis. There is no retroperitoneal adenopathy. No evidence of ascites. Contr ast images show normal renal enhancement. There is normal enhancement of the portal venous system. No evidence of a bowel obstruction. IMPRESSION: Negative MR scan of the abdomen. No evidence of a liver lesion.
== END | disposition home or self-care (01) ==
LOC: RADMRIMAIN 19:41
PROVIDERS: ATTEND Family Medicine
DX: R10.9 Unspecified abdominal pain (principal)
CPT/HCPCS: 74183; A9585

== ENCOUNTER 2022-05-20 01:56 | Emergency (ER) | payer OTHER, BC ==
[2022-05-20 02:03] VITALS: BP 132/91; PULSE 70; RESP 18; TEMP 98
[2022-05-20] MEDS ORDERED: LIDOCAINE 1% INJ 10MG/ML (20 ML MDV) SQ ONE (02:39)
[2022-05-20] MEDS ORDERED: DIPH,PERTUS(ACELL)TETVAC-LF 0.5 ML VIAL IM ONE (02:39)
--- NOTE | 2022-05-20 03:28 | XR ---
EXAMINATION TYPE: XR knee complete LT DATE OF EXAM: 05/20/2022 COMPARISON: 01/20/2016 HISTORY: Pain TECHNIQUE: 3 views FINDINGS: There is some calcification of the menisci. I see no fracture nor dislocation. No sign of a ny significant joint effusion. Joint spaces are fairly normal. IMPRESSION: Chondrocalcinosis consistent with pseudogout which has progressed compared to the old exa m. No fracture.
--- NOTE | 2022-05-20 04:08 | ED ---
General Adult HPI - General Chief complaint: Wound/Laceration Stated complaint: knee injury - [facility] Time Seen by Provider: 05/20/22 02:33 Source: patient Mode of arrival: ambulatory Limitations: no limitations - History of Present Illness Initial comments: Patient is a 56-year-old male presenting with chief complaint of laceration. Patient was at work when he was sitting on a stool with his legs underneath a metal table. Patient states when he went to move his legs he cut the left leg right above the knee on the edge of a metal table. There is now a 4 cm laceration just superior to the knee. Denies numbness, tingling, weakness, loss of range of motion. - Related Data Home Medications Medication Instructions Recorded Confirmed Albuterol Inhaler [Ventolin Hfa 2 puff INHALATION RT-Q6H PRN 01/21/21 01/21/21 Inhaler] Ibuprofen [Motrin Ib] 60 mg PO Q8H PRN 01/21/21 01/21/21 Pantoprazole Sodium [Protonix] 40 mg PO DAILY 01/21/21 01/21/21 amLODIPine [Norvasc] 2.5 mg PO DAILY 01/21/21 01/21/21 Previous Rx's Medication Instructions Recorded Cyclobenzaprine [Flexeril] 10 mg PO TID PRN #15 tab 05/16/21 Ibuprofen [Motrin] 600 mg PO Q8HR PRN #20 tab 05/16/21 Allergies Allergy/AdvReac Type Severity Reaction Status Date / Time No Known Allergies Allergy Verified 05/20/22 02:02 Review of Systems ROS Statement: Those systems with pertinent positive or pertinent negative responses have been documented in the HPI. ROS Other: All systems not noted in ROS Statement are negative. Past Medical History Past Medical History: Asthma History of Any Multi-Drug Resistant Organisms: None Reported Past Surgical History: Orthopedic Surgery Additional Past Surgical History / Comment(s): left knee sx Past Psychological History: No Psychological Hx Reported Smoking Status: Never smoker Past Alcohol Use History: Occasional Past Drug Use History: None Reported General Exam Limitations: no limitations General appearance: alert, in no apparent distress Head exam: Present: atraumatic, normocephalic, normal inspection Eye exam: Present: normal appearance, PERRL, EOMI. Absent: scleral icterus, conjunctival injection, periorbital swelling Neck exam: Present: normal inspection Left Knee exam: Present: full ROM Neurological exam: Present: alert, oriented X3, CN II-XII intact Psychiatric exam: Present: normal affect, normal mood Expanded Type of lesion: Present: laceration (4 cm, superior to the left knee) Course Vital Signs 05/20/22 02:01 Temperature 98 F Pulse Rate 70 Respiratory 18 Rate Blood Pressure 132/91 O2 Sat by Pulse 99 Oximetry Procedures - Laceration Laceration #1 Consent Obtained: verbal consent Indication: laceration Site: lower extremity Size (cm): 4 Description: linear Depth: simple, single layer Anesthetic Used: lidocaine 1%, without epi Anesthesia Technique: local infiltration Amount (mls): 5 Pre-repair: wound explored, irrigated extensively, deep structures intact Type of Sutures: nylon Size of Sutures: 4-0 Number of Sutures: 5 Technique: simple, interrupted Patient Tolerated Procedure: well, no complications Medical Decision Making - Medical Decision Making Patient is a 56-year-old male presenting with chief complaint of laceration to the left leg. There is a 4 cm linear laceration just superior to the knee. On examination there is no evidence of foreign body and deep structures are intact, x-rays obtained which shows no damage to the joint space and no evidence of foreign body. Tetanus is updated. Wound is repaired using 5 simple interrupted sutures with 4-0 nylon. Educated on wound care. Follow-up with PCP. Report back to ER with any new or worsening symptoms. Discussed return parameters and answered all questions. Patient conveyed verbal understanding and agreed to the plan. I discussed this case in detail with my attending Dr. Casas Disposition Clinical Impression: Laceration Disposition: HOME SELF-CARE Condition: Good Instructions (If sedation given, give patient instructions): Care For Your Stitches (ED), Laceration (ED) Additional Instructions: Follow-up with PCP. Report back to ER with any new or worsening symptoms. Monitor for signs of infection, including but not limited to redness, swelling, warmth, tenderness, discharge, fever, chills. Keep the wound clean with soap and water. Sutures may be removed in 10-14 days. Keep the wound clean, dry, covered. Avoid submersion. Is patient prescribed a controlled substance at d/c from ED?: No Referrals: Neto Foster MD [Primary Care Provider] - 1-2 days Time of Disposition: 04:08
== END 2022-05-20 04:37 | disposition home or self-care (01) ==
LOC: EC 01:56
DX: S81.012A Laceration without foreign body, left knee, initial encounter (principal); J45.909 Unspecified asthma, uncomplicated; Z23 Encounter for immunization; W26.8XXA Contact with other sharp object(s), not elsewhere classified, initial encounter; Y99.0 Civilian activity done for income or pay
CPT/HCPCS: 73562; 90715; 99283; 12002; 90471; J2001

== ENCOUNTER → 2024-12-01 | Outpatient (CLI) | payer OTHER ==
--- NOTE | 2024-12-01 20:59 | MR ---
EXAMINATION TYPE: MR lumbar spine wo con DATE OF EXAM: 12/01/2024 COMPARISON: Prior MRI lumbar spine November 02, 2022 HISTORY: Low back pain into both sides x3 years TECHNIQUE: Multiplanar, multisequence imaging of the lumbar spine is performed without IV contrast. FINDINGS: Sagittal images of the lumbar spine show vertebral body heights to remain satisfactory. Per sistent slight grade 1 retrolisthesis of L2 on L3 and L3 on L4. Multilevel disc desiccation is redemo nstrated. Persistent mild to moderate disc space narrowing at L2-L3 level. Persistent moderate disc s pace narrowing with heterogeneous Modic type II endplate changes at the L5-S1 level. The conus medul [place] is normal in position and signal ending at mid L1 level. Axial images show T12-L1 and L1-L2 levels to remain within normal limits. Axial images at L2-L3 level show [id number] broad disc bulge mildly effacing the anterior theca l sac and causing mild bilateral neural foraminal narrowing. No significant change from prior. Axial images at L3-L4 levels and mild to moderate broad disc bulge minimally effacing anterior thecal sac and mild facet arthropathy bilaterally. Mild to moderate bilateral neural foraminal narrowing is again seen. No significant change from prior. Axial images at L4-L5 level shows mild to moderate broad disc bulge with posterior annular tear and c entral disc protrusion and moderate facet arthropathy bilaterally. There is moderate bilateral neural foraminal narrowing redemonstrated. No significant change from prior. Mild effacement anterior theca l sac redemonstrated. Axial images at the L5-S1 level demonstrates hpzq-hd-inbeghwy facet arthropathy bilaterally. There is cpej-lj-ovhonlwk broad disc bulge. Spinal canal is preserved. There is severe bilateral neural ozzie inal narrowing redemonstrated. Paraspinal muscle bulk is preserved. IMPRESSION: Multilevel degenerative changes in the mid to lower lumbar spine are redemonstrated as de tailed above. [facility], , 12/01/2024 8:56 PM
== END | disposition home or self-care (01) ==
LOC: RADMRIMAIN 19:09
PROVIDERS: ATTEND Family Medicine
DX: M47.26 Other spondylosis with radiculopathy, lumbar region (principal); M51.16 Intervertebral disc disorders with radiculopathy, lumbar region; M99.73 Connective tissue and disc stenosis of intervertebral foramina of lumbar region
CPT/HCPCS: 72148

== ENCOUNTER → 2025-02-04 | Outpatient (CLI) | payer OTHER ==
[2025-02-04 08:26] VITALS: BP 151/96; PULSE 66; RESP 16; TEMP 97.1
--- NOTE | 2025-02-04 16:01 | P.PAINPG ---
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 Pt states pain level is provoked at 7 /10 in intensity, constant, localized in the lumbar spine, predominantly axial, sharp in character without shooting pain. Pain is provoked by twisting, standing/ walking for periods > 20 min. Pain is alleviated by physician guided home exercises 4-5 times weekly since early December 2024, medications, heat, topical, manual massage, repositioning and rest . Oswestry axial pain score at 30. PMH: OA, Asthma, HTN, Seasonal Allergies, GERD PSH: L Knee Surgery SH: Never smoker, Occ ETOH use, No illicit drug use FH: Non contributory All: See list Medications include Neurontin 300mg TID, Flexeril 5mg HS, Ibu 600mg REVIEW OF ORGAN SYSTEMS: CONSTITUTIONAL: No fevers or chills. No recent weight loss. NEUROLOGICAL: + numbness and tingling along the distal extremities. No seizure disorders or headaches. MUSCULOSKELETAL: + pain PSYCHIATRIC: Denies current depression or suicidal thoughts. Physical Examinations : Constitutional : Cooperative , not in acute distress . Neurologic : Cranial nerve II to XII intact. No focal neurological deficits. Psychiatric : alert & oriented x 3. Matching mood & appropriate affect. Judgment & insight intact. Musculoskeletal : Cervical Spine Motor strength in the deltoid and bicep s: Normal right side. Normal Left side Motor strength biceps and the wrist extensors: Normal right side . Normal left side Motor strength in the triceps muscle: Normal right side. Normal left side Deep tendon reflexes: Normal at the biceps. Normal at Brachioradialis. Normal at triceps Vertebral body tenderness to deep palpation over Cervical facet loading test: positive bilaterally Spurling test: positive bilaterally Neck distraction test: positive bilaterally Sukhwinder sign: positive bilaterally Lumbar spine Motor strength lower extremities ,thigh and legs 5/5 Right side , 5/5 Left side Deep tendon reflexes : Normal Knee Jerk. Normal Ankle Jerk Vertebral body tenderness over Mendoza Test positive Lumbar facet Loading Test: positive Right / positive Left L4-L5/ L5-S1 Range of motion of the lumbar spine Flexion 30 degrees, extension 10 degrees Straight Leg Raise test: Left/ Right positive at degrees Agustin test: positive right / positive left. Severe tenderness over the Sacroiliac joint on the Right / Left sides Gaenslen test: positive bilaterally Seated flexion test: positive bilaterally. Sacral spine : Severe tenderness over the Sacroiliac joint: right side / left side Range of motion: Flexion of the lumbar spine <60 degrees Range of motion: Extension of the lumbar spine <20 degrees Gaenslen's Test positive Agustin test: positive right side / left side Thigh Thrust Test Sacral Thrust Test Imaging: MRI non contrast lumbar spine from 12/01/24 reviewed Assessment/ Plan : L2-S1 retrolisthesis, Lumbar facet arthropathy Recommendation of AMELIE MBB L4-L5/ L5-S1 #1. Risks, benefits of procedure discussed and patient verbalized understanding. Admits to anti- coagulant use or medical history of diabetes. Protocol for discontinuation/ continuation of medications guillermo procedure discussed. Minimal anesthesia provided, if clinically indicated, consisting of Versed and Fentanyl. All questions answered. I have spent greater than 30 minutes on patient care today. Dr Stuart was available by phone for the evaluation of this patient. The time was used to review the medical records including relevant urine studies and Prescription history (MAPs), review of the available imaging, evaluation and examination of the patient, coordination of care with the medical staff and if applicable referring physicians, as well as creation of the medical record PQRS Narrative: Smoking Status Never smoker Home Medications: Ambulatory Orders Albuterol Inhaler [Ventolin Hfa Inhaler] 2 puff INHALATION RT-Q6H PRN 01/21/21 Pantoprazole Sodium [Protonix] 40 mg PO DAILY 01/21/21 Acetaminophen [Tylenol Extra Strength] 1 - 2 tab PO DIRECTED PRN 01/15/23 Cyclobenzaprine [Flexeril] 10 mg PO HS 02/04/25 Gabapentin 300 mg PO DAILY 02/04/25 Ibuprofen 600 mg PO Q8H 02/04/25 Controlled Substance Measures - Controlled Substance Measures Is patient prescribed a controlled substance at discharge?: No
== END ==
LOC: PNWHC3 08:05
PROVIDERS: ATTEND Specialist
DX: M47.817 Spondylosis without myelopathy or radiculopathy, lumbosacral region (principal)
CPT/HCPCS: 99211

== ENCOUNTER 2025-03-03 08:44 | Day surgery (SDC) | payer OTHER ==
[2025-03-02 10:22] VITALS: BMI 29.0
[2025-03-03 09:14] VITALS: RESP 16; TEMP 97.1
[2025-03-03] MEDS: LACTATED RINGERS 1,000 ML IV SCH (09:22)
[2025-03-03] MEDS: IV FLUID CONTINUATION 1,000 ML IV ONE ×2 (09:23→10:43)
[2025-03-03] MEDS ORDERED: fentaNYL (PF) 50 MCG/ML 2 ML AMP ONE (10:18)
[2025-03-03] MEDS ORDERED: MIDAZOLAM 2 MG/2 ML VIAL ONE (10:18)
[2025-03-03] MEDS ORDERED: ROPIVACAINE 5 MG/ML 30 ML VIAL ONE (10:18)
--- NOTE | 2025-03-03 10:30 | P.PCN ---
Date of Procedure: 03/03/25 Surgeon: Patsy Melendez Description of Procedure: Pre and postop diagnosis: Lumbar spondylosis without myelopathy, lumbar facet arthropathy. Sedation: Local with lidocaine 1% and IV moderate conscious sedation with fentanyl and Versed Name of procedure: Lumbar diagnostic medial branch block under fluoroscopic guidance for medial branches L3, L4, and L5 bilaterally. Physician: Patsy Melendez MD Sedation time: Description of procedure: The patient was seen in the preop holding area, co nsent was obtained. Then the patient was brought into the procedure room and placed in prone position with 1 pillow beneath the abdomen to reduce lumbar lordosis. Skin was prepped with ChloraPrep and draped in a sterile manner. Lidocaine 1% was used to numb the skin up at the target points that were chosen as follows: For the L5 dorsal ramus target points were at the sacral ala on each side of the spine on the AP view of fluoroscopy and for the L3 and L4 medial branches that target points were at the eye of the Panchito dog at the connection between the transverse process and the superior articular process of L4 and L5 vertebra respectively on the oblique view of fluoroscopy. I used 3-1/2 inch 22-gauge Quincke spinal needle to go through the skin after localizing it with lidocaine 1% at the target points mentioned above. After contacting bone at the target points I injected 1 ML of Ropivacaine 0.5% . Patient tolerated procedure well. The patient was taken into PACU in stable condition. Patient will follow-up with our clinic in a few weeks meanwhile she was advised to call the clinic or go to the ER if the clinic is not open for any perceived side effects.
--- NOTE | 2025-03-03 10:41 | FL ---
EXAMINATION TYPE: FL guided pain mgmt statistic Intraoperative/procedural fluoroscopic services were provided. CLINICAL INDICATION:Male, 59 years old with history of FACET BLOCK FEDE; , PHH FINDINGS: Fluoroscopic images demonstrate bilateral lumbar facet block. No radiographic evidence for complicati on. Total fluoroscopy time is 8.5 seconds. DAP: [id number] [id number] Please see the operative/procedural note for further details. [facility], , 03/03/2025 10:38 AM
[2025-03-03 11:02] VITALS: BP 109/72; PULSE 85
== END 2025-03-03 11:11 | disposition home or self-care (01) ==
LOC: ORPAIN 08:44
PROVIDERS: ATTEND Anesthesiology
DX: M47.816 Spondylosis without myelopathy or radiculopathy, lumbar region (principal)
CPT/HCPCS: 64493; 64494; J2250; J3010; J2795; 99152

== ENCOUNTER → 2025-03-26 | Outpatient (CLI) | payer OTHER ==
[2025-03-26 08:57] VITALS: BP 134/91; PULSE 77; TEMP 98
--- NOTE | 2025-03-26 14:30 | P.PAINPG ---
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 Pt states he experienced 0% pain relief s/p procedure. Pt states pain level is provoked at 7 /10 in intensity, constant, localized in the lumbar spine, predominantly axial, sharp in character without shooting pain. Pain is provoked by twisting, standing/ walking for periods > 20 min. Pain is alleviated by physician guided home exercises 4-5 times weekly since early December 2024, medications, heat, topical, manual massage, repositioning and rest . Oswestry axial pain score at 30. Interventional procedures include BL MBB L3-L5 x1 Medications include Neurontin 300mg TID, Flexeril 5mg HS, Ibu 600mg REVIEW OF ORGAN SYSTEMS: CONSTITUTIONAL: No fevers or chills. No recent weight loss. NEUROLOGICAL: + numbness and tingling along the distal extremities. No seizure disorders or headaches. MUSCULOSKELETAL: + pain PSYCHIATRIC: Denies current depression or suicidal thoughts. Physical Examinations : Constitutional : Cooperative , not in acute distress . Neurologic : Cranial nerve II to XII intact. No focal neurological deficits. Psychiatric : alert & oriented x 3. Matching mood & appropriate affect. Judgment & insight intact. Musculoskeletal : Cervical Spine Motor strength in the deltoid and biceps: Normal right side. Normal Left side Motor strength biceps and the wrist extensors: Normal right side . Normal left side Motor strength in the triceps muscle: Normal right side. Normal left side Deep tendon reflexes: Normal at the biceps. Normal at Brachioradialis. Normal at triceps Vertebral body tenderness to deep palpation over Cervical facet loading test: positive bilaterally Spurling test: positive bilaterally Neck distraction test: positive bilaterally Sukhwinder sign: positive bilaterally Lumbar spine Motor strength lower extremities ,thigh and legs 5/5 Right side , 5/5 Left side Deep tendon reflexes : Normal Knee Jerk. Normal Ankle Jerk Vertebral body tenderness over Mendoza Test positive Lumbar facet Loading Test: positive Right / positive Left L4-L5/ L5-S1 Range of motion of the lumbar spine Flexion 30 degrees, extension 10 degrees Straight Leg Raise test: Left/ Right positive at degrees Agustin test: positive right / positive left. Severe tenderness over the Sacroiliac joint on the Right / Left sides Gaenslen test: positive bilaterally Seated flexion test: positive bilaterally. Sacral spine : Severe tenderness over the Sacroiliac joint: right side / left side Range of motion: Flexion of the lumbar spine <60 degrees Range of motion: Extension of the lumbar spine <20 degrees Gaenslen's Test positive Agustin test: positive right side / left side Thigh Thrust Test Sacral Thrust Test Imaging: MRI non contrast lumbar spine from 12/01/24 reviewed Assessment/ Plan : L2-S1 retrolisthesis, Lumbar facet arthropathy Recommendation of follow up w Dr Brannon to explore additional treatment options. All questions answered. I have spent greater than 30 minutes on patient care today. Dr Stuart was available by phone for the evaluation of this patient. The time was used to review the medical records including relevant urine studies and Prescription history (MAPs), review of the available imaging, evaluation and examination of the patient, coordination of care with the medical staff and if applicable referring physicians, as well as creation of the medical record - Pain Location Bilateral Lower Back Non-Pharmacological Interventions: Massage, Physical Therapy Pharmacological Interventions: Epidural, Medication PQRS Narrative: Smoking Status Never smoker Hx Alcohol Use (MH) No Home Medications: Ambulatory Orders Albuterol Inhaler [Ventolin Hfa Inhaler] 2 puff INHALATION RT-Q6H PRN 01/21/21 Pantoprazole Sodium [Protonix] 40 mg PO DAILY 01/21/21 Acetaminophen [Tylenol Extra Strength] 1 - 2 tab PO DIRECTED PRN 01/15/23 Cyclobenzaprine [Flexeril] 10 mg PO HS 02/04/25 Gabapentin 300 mg PO DAILY 02/04/25 Ibuprofen 600 mg PO Q8H PRN 02/04/25 Controlled Substance Measures - Controlled Substance Measures Is patient prescribed a controlled substance at discharge?: No
== END | disposition home or self-care (01) ==
LOC: PNWHC3 08:11
PROVIDERS: ATTEND Specialist
DX: M47.27 Other spondylosis with radiculopathy, lumbosacral region (principal); M43.17 Spondylolisthesis, lumbosacral region
CPT/HCPCS: 99211